=== PATIENT | female | born 2000 | race Hispanic/Latino ===

== ENCOUNTER 2022-08-14 13:54 | Emergency (ER) | payer SELFPAY ==
[2022-08-14 14:10] VITALS: BP 132/68; PULSE 85; RESP 20; TEMP 36.1; O2SAT 100
--- NOTE | 2022-08-14 14:43 | ED.SKABFB ---
HPI - Skin/Abscess/Foreign Bdy General Chief complaint: Skin/Abscess/Foreign Body Stated complaint: Allergic Reaction Time Seen by Provider: 08/14/22 14:43 Source: patient Mode of arrival: ambulatory Limitations: no limitations History of Present Illness HPI narrative: 21-year-old female presents with complaint of hives to bilateral arms, legs and trunk for 2 days. Took Benadryl with no relief. Complained of itching. Denies use of any new skin products, cleansers, laundry detergents or new foods. No history of hives. Patient also requesting test. Reports that period is 1 week late. No complaints of vaginal bleeding, abdominal pain. No urinary symptoms. Afebrile. All systems reviewed and negative except as noted above. Related Data Allergies Allergy/AdvReac Type Severity Reaction Status Date / Time No Known Allergies Allergy Mild Verified 08/14/22 14:09 Review of Systems Review of Systems: CONSTITUTIONAL: Denies fever, chills, or sweats. EYES: Denies visual changes, redness, or discharge. ENT: Denies rhinorrhea, congestion, sore throat, or otalgia. CARDIOVASCULAR: Denies chest pain, palpitations, or edema. RESPIRATORY: Denies cough or dyspnea. GASTROINTESTINAL: Denies abdominal pain, nausea, vomiting, or diarrhea. GENITOURINARY: Denies dysuria or hematuria. SKIN: Reports hives and itching. MUSCULOSKELETAL: Denies back pain, joint pain, or myalgia. NEUROLOGIC: Denies headache, numbness, or weakness. PSYCHIATRIC: Denies anxiety or depression. All other systems reviewed are negative, except as documented in HPI. PMFSH Comments At time of signature, agree with nursing past medical, surgical, social and family history. There is no relevant family history pertinent to the presenting complaint. Exam Narrative: GENERAL: This is a well-nourished, well-developed patient, in no apparent distress. HEAD: normocephalic, atraumatic. EYES: PERRL. Sclera clear/white. Vision is grossly intact. EARS: External ears normal NOSE: External nose normal NECK: Neck supple, non-tender without lymphadenopathy, masses or thyromegaly. CARDIOVASCULAR: Regular rate and rhythm without murmurs, gallops, or rubs. RESPIRATORY: Clear to auscultation. Breath sounds equal bilaterally. No wheezes, rales, or rhonchi. SKIN: warm, Dry, intact with no suspicious lesions, good texture and turgor. Erythematous sized bilateral forearms, abdomen, lower legs. NEURO: awake, alert, and oriented to person, place and time. There were no obvious focal neurologic abnormalities. EXTREMITIES: No joint tenderness, effusion, or edema noted. Course Course Level of Care: Express Care Visit Vital Signs Vital signs: Vital Signs Temperature 36.1 C L 08/14/22 14:10 Pulse Rate 85 08/14/22 14:10 Respiratory Rate 20 08/14/22 14:10 Blood Pressure 132/68 08/14/22 14:10 Pulse Oximetry 100 08/14/22 14:10 Oxygen Delivery Room Air 08/14/22 14:10 Temperature 36.1 C L 08/14/22 14:10 Pulse Rate 85 08/14/22 14:10 Respiratory Rate 20 08/14/22 14:10 Blood Pressure 132/68 08/14/22 14:10 Pulse Oximetry 100 08/14/22 14:10 Oxygen Delivery Room Air 08/14/22 14:10 Reviewed MDM - Skin/Abscess/Foreign Bdy MDM Narrative Medical decision making narrative: positive urine test. Referred to OBGYN for follow-up. Patient is aware of diagnosis, understands and agrees to treatment plan. Anticipatory guidance given. Patient agrees to follow-up as directed and is aware of reasons to seek care at the emergency department. Portions of this record may have been created with voice recognition software Lab Data Labs: UCG Bedside Result Positive Reference Range: Negative Discharge Plan Discharge Clinical Impression: Hives, Positive urine test Patient Disposition: Home, Self-Care Condition: Stable Instructions: Urticaria
== END 2022-08-14 15:11 | disposition home or self-care (01) ==
PROVIDERS: Emergency Provider Nurse Practitioner Family
DX: L50.9 Urticaria, unspecified (principal); Z32.01 Encounter for pregnancy test, result positive
CPT/HCPCS: 81025; 99213; G0463

== ENCOUNTER 2023-03-23 14:49 | Observation (INO) | payer OTHER, SELFPAY ==
--- NOTE | 2023-03-23 14:49 | OBADM ---
This patient, Norma Jansen, admitted to the OB room Labor/Delivery/Recovery 106 for observation. Patient/family oriented to hospital policies and general routines including ID bracelet, bed and alarms, visiting hours, pain management, procedures, bathroom and other care routines, personal items, smoking policy, room service/diet, and visiting hours. Patient/Family are encouraged to report perceived risks to care and to ask questions if they do not understand what they are told or what they should do.
--- NOTE | 2023-04-02 06:50 | PM.OBTRLD ---
OB - Triage/Final Diagnosis Visit Information Comments/Additional reasons for admission: I have assessed the risk for this patient, Norma Jansen, and determined that she would benefit from observation care. Final Diagnosis (1) contractions: Code(s): O47.00 - False labor before 37 completed weeks of gestation, unspecified trimester Status: Acute
== END 2023-03-23 17:40 | disposition home or self-care (01) ==
PROVIDERS: Admitting Provider Obstetrics & Gynecology; Visit Provider Obstetrics & Gynecology
DX: O47.1 False labor at or after 37 completed weeks of gestation (principal); Z3A.37 37 weeks gestation of pregnancy
CPT/HCPCS: G0378; G0379

== ENCOUNTER 2023-04-13 05:40 | Inpatient (IN) | payer OTHER, SELFPAY ==
[2023-04-13] VITALS (75 sets, daily range): BP systolic 74–145; BP diastolic 36–110; PULSE 73–166; RESP 16; TEMP 36.6–37.6; O2SAT 97–100; BMI 35.5
[2023-04-13 06:10] LABS: Basophils Percent Auto 0.4 % (0.2-1.2); Eosinophils Absolute Auto 0.1 K/mm3 (0-0.3); Eosinophils Percent Auto 1.4 % (0-4.4); Hematocrit 40.8 % (37.0-47.0); Hemoglobin 13.8 g/dL (12.0-15.0); Immature Granulocyte Absolute 0.02 K/mm3 (0.00-0.031); Immature Granulocyte Percent A 0.2 % (0-0.5); Lymphocytes Absolute Auto 2.33 K/mm3 (0.9-3.2); Lymphocytes Percent Auto 23.8 % (18.3-44.2); Mean Corpuscular HGB Conc 33.8 g/dl (32-36); Mean Corpuscular Hemoglobin 28.2 pg (26-34); Mean Corpuscular Volume 83.3 fl (80-100); Mean Platelet Volume 10.5 fl (7.4-10.4); Monocytes Absolute Auto 0.8 K/mm3 (0.1-0.6); Monocytes Percent Auto 7.8 % (2.6-8.5); Neutrophils Absolute Auto 6.5 K/mm3 (1.3-6.7); Neutrophils Percent Auto 66.4 % (45.5-73.1); Platelet Count Result 260 k/mm3 (150-375); Red Cell Distribution Width 12.8 % (11.5-14.5); White Blood Count 9.8 K/mm3 (4.5-10.0)
[2023-04-13] MEDS: LACTATED RINGERS 1,000 ML 999 ML IV CONT (06:30)
--- NOTE | 2023-04-13 06:49 | PM.IMHP ---
H&P: HPI History of Present Illness Date/Time: 04/13/23 06:49 Chief Complaint: labor Narrative: Norma is a 22yo G1 at 40.1 who presented in labor at 6cm. uncomplicated except for marginal cord insertion. GBS neg. Review of Systems Review of Systems: All systems reviewed & are unremarkable except as noted in HPI and below PMFSH Family History Family History (Updated 03/19/23 @ 14:28 by Sayra Carter RN) Other Unknown family medical history Social History Social History Substance use: never Spiritual care concerns: No Meds Home Medications and Allergies Home Medications Medication Instructions Recorded Confirmed Type famotidine 20 mg tablet 20 mg PO BID 5 days #10 tabs 08/14/22 03/19/23 Rx prenat.vits,salvador,[id number] 1 tablet PO DAILY #60 tabs 08/14/22 03/19/23 Rx Allergies Allergy/AdvReac Type Severity Reaction Status Date / Time No Known Allergies Allergy Mild Verified 08/14/22 14:09 Exam Const: General: no acute distress Resp: Effort & Inspection: normal respiratory effort Auscultation: clear to auscultation bilaterally Cardio: Rate: regular rate Rhythm: regular rhythm GI: GI Palp: Yes Soft to palpation Extrem: General: normal to inspection H&P: Results Labs Labs: Short CBC 04/13/23 Range/Units 06:03 WBC 9.8 (4.5-10.0) K/mm3 Hgb 13.8 (12.0-15.0) g/dL Hct 40.8 (37.0-47.0) % Plt Count 260 (150-375) k/mm3 Assessment and Plan Assessment and plan (1) Marginal insertion of umbilical cord: Status: Acute (2) Active labor at term: Status: Acute Plan FHT category 1 AROM clear /-1 GBS neg
[2023-04-13] MEDS: LACTATED RINGERS 1,000 ML 125 ML IV CONT (07:31)
[2023-04-13 08:11] LABS: Rapid Plasma Reagin Non-Reactive (NonReactive)
--- NOTE | 2023-04-13 10:15 | PC.NURSE ---
0910 - Introductions were made and mother shared how she would like to feed her baby with . Encouraged mother to place [id number] until the first feeding if infant is stable and to wait on the weight to help stabilize, reduce stress, and improve latching by allowing time to explore parent's chest using instincts. Education was shared on how to protect her milk supply with latching infant and/or using hand expression to remove milk if doesn't latch in the first hour, then finger feed colostrum to the infant to preserve breast focus. Resources provided with educational trifold for bonding and feeding infant. Parents voiced understanding of information and to call if there is a request for assistance.
[2023-04-13] MEDS: OXYTOCIN 30 UNITS/NS 500 ML 30 UNITS/500 ML BAG 999 UNITS IV CONT (10:41)
[2023-04-13] MEDS: OXYTOCIN 30 UNITS/NS 500 ML 30 UNITS/500 ML BAG 125 UNITS IV CONT (11:15)
--- NOTE | 2023-04-13 11:25 | PM.OBPRVD ---
OB - Delivery Note Procedure Delivery date: 04/13/23 Procedure: Delivery augmentation: Rupture of Membranes Delivery monitor: External FHT and External Uterine Route of delivery: Laceration Description: Perineal - 2nd Degree and Vaginal (extensive vaginal vault lacerations with brisk bleeding leading to hemorrhage) Delivery repair: vicryl Specimen: No Quantitative Blood Loss (ml): 900 Anesthesia type: Epidural Disposition: Floor Complications: Complicated repair of extensive vaginal vault lacerations. Hemorrhage of 900cc during repair, hemostatic after. Narrative: With adequate expulsive efforts by the mother, the baby's head was delivered OA. The baby's anterior shoulder was delivered under the pubic symphysis without difficulty. The posterior shoulder and the rest of the baby delivered without difficulty. Thick meconium noted at delivery. The was placed on the mothers chest and suctioned and stimulated. The cord was clamped and cut after 30 seconds. Mother and baby both stable. Baby Date of : 04/13/23 Time of : 10:35 Weeks of gestation at delivery: 40 gender: Female Weight (pounds): 8 Weight (ounces): 0 presentation: vertex Placenta delivery description: Manual Removal Cord Vessel Description: 3 Vessels and Delayed Cord Clamping score one minute: 8 score five minutes: 9
[2023-04-13] MEDS: ONDANSETRON INJ 4 MG/2 ML VIAL IV PUSH (11:30)
[2023-04-13] MEDS: IBUPROFEN 600 MG TABLET PO ×2 (14:05→20:18)
[2023-04-13] MEDS: WITCH HAZEL 40 PADS 1 PAD TOPICAL (14:06)
[2023-04-13] MEDS: BENZOCAINE 20% AER SPR (*SP) 56 GM CAN 1 SPRAY TOPICAL (14:06)
[2023-04-13] MEDS: ACETAMINOPHEN 325 MG TABLET 650 MG PO (16:54)
[2023-04-13] MEDS: POLYSACCHARIDE IRON COMPLEX 150 MG CAPSULE PO (16:54)
[2023-04-14] MEDS: IBUPROFEN 600 MG TABLET PO ×3 (02:15→16:29)
[2023-04-14 04:55] VITALS: BP 120/78; PULSE 86; RESP 18; TEMP 36.6
[2023-04-14 05:52] LABS: Hematocrit 26.9 % (37.0-47.0); Hemoglobin 8.9 g/dL (12.0-15.0)
--- NOTE | 2023-04-14 07:29 | P.PNOB_ITS ---
OB - PN: Subj Subjective Date/time seen: 04/14/23 07:29 vaginal delivery, pp day 1 pt requests d/c VSS, no complaints OB - PN: Obj Data Labs 04/14/23 04:57 Labs: Laboratory Results - last 24 hr 04/13/23 04/14/23 06:03 04:57 Hgb 8.9 L D Hct 26.9 L RPR Non-reactive OB - PN A/P Plan day: 1 Plan: routine care and discharge home Time Spent With Patient Time: Total time spent is greater than 50% in coordination of care (as documented) at patient's floor/unit and/or counseling patient: Review of Systems Review of Systems: All systems reviewed & are unremarkable except as noted in HPI and below Exam Const: General: cooperative, healthy appearing and comfortable Chest: Chest palpation & inspection: normal inspection of the chest Resp: Effort & Inspection: normal respiratory effort GI: Other: soft Skin: General skin exam: normal color and no rashes or lesions noted Extrem: Right lower extremity: normal to inspection Left lower extremity: n ormal to inspection Psych: Appearance: grossly normal
--- NOTE | 2023-04-14 07:32 | P.DS_ITS ---
DS: Admitting Diagnosis Discharge Date 04/14/2023 Admitting Diagnosis labor DS: Discharge Diagnosis Discharge Diagnosis (1) Vaginal delivery: Code(s): O80 - Encounter for full-term uncomplicated delivery Status: Acute OB - DS: Summary OB Procedures : None OB Procedures Intrapartum: Spontaneous Vag Delivery OB Procedures: : None Time Spent with Patient Time attestation: Total time spent providing and/or coordinating discharge services: DS: Data Data Completed and Pending Labs on day of discharge: Labs from last 24 hours 04/14/23 04/13/23 04:57 06:03 Hgb 8.9 L D Hct 26.9 L RPR Non-reactive Discharge Plan Discharge Attending physician on discharge: Lara Emmanuel Discharging Clinician: Shawnee Ricks Patient Disposition: Home, Self-Care Activity: pelvic rest Diet: regular Patient Instructions: Antibiotic Form Stand Alone Forms: General Discharge Information Follow-up/Referrals: Connie Piedra MD [Physician] - 4 Weeks Discharge Medications: New ibuprofen 600 mg Tablet 600 mg PO Q6H PRN (Reason: Cramping) Qty: 30 0RF polysaccharide iron complex 150 mg iron Capsule 150 mg PO BIDWM Qty: 60 0RF Continued prenat.vits,salvador,[id number] Tablet 1 tablet PO DAILY Qty: 60 0RF Date of admission: 04/13/23 05:40 Primary Care Provider: PHYSICIAN,EARLY CHILDHOOD ASSOCIATE TEACHER Admitting Provider: Connie Piedra Attending physician on admission: Connie Piedra Condition: Stable
[2023-04-14 07:50] VITALS: BP 93/49; PULSE 79; RESP 18; TEMP 36.4; O2SAT 100
[2023-04-14] MEDS: POLYSACCHARIDE IRON COMPLEX 150 MG CAPSULE PO ×2 (08:05→16:28)
[2023-04-14] MEDS: MULTIVIT/MIN/PREN/FOL AC/IRON TABLET 1 TAB PO (08:05)
[2023-04-14] MEDS: DOCUSATE SODIUM 100 MG CAPSULE PO ×2 (08:06→16:29)
--- NOTE | 2023-04-14 10:50 | WPDANLDPN2 ---
Anes-Prog Note L&D Date/Time: 04/14/23 10:50 Comfortable throughout: labor and delivery Neuraxial method: epidural Epidural/Spinal procedure site: clean & non-tender Neuro status: Neuro function grossly intact. Cardiovascular status: normal Respiratory status: normal Airway patency: baseline Mental status: baseline Post-Op hydration status: normal Vital Signs: Last Vital Signs Temp 36.4 C L 04/14/23 07:50 Pulse 79 04/14/23 07:50 Resp 18 04/14/23 07:50 BP 93/49 L 04/14/23 07:50 Pulse Ox 100 04/14/23 07:50 O2 Del Method Room Air 04/13/23 19:30 Pain score (VAS): 10 I/O: Intake & Output 04/13/23 04/14/23 04/14/23 23:59 07:59 15:59 Intake Total 240 Balance 240 Post-procedural complaints: none Patient feedback: Patient satisfied with anesthetic care.
--- NOTE | 2023-04-14 14:57 | PC.NURSE ---
[id number] Re-introductions were made and name written on the communication board. Encouraged mother reminding her of the benefits of [id number]-[id number], stimulating infant for wakeful feeding every 2-3 hours. Mother states she has been latching well with no pain and will call for assistance with the next . [id number] Mother requested assistance with latching . Mother works well with her infant with encouragement and education. Reviewed positioning, supporting the breast to facilitate a deep latch, asymmetrical latch (off-center), leading with the chin with a big, open, wide gape and body close to mother. Infant latched optimally to the right breast in football position. Education given to mother of how to visualize suck/swallow ratios and listen for drinking at the breast. Infant was able to maintain latch without discomfort to mother. Nipple care reviewed with optimal latch and good positioning. Resources used to facilitate learning were used with the mom and baby guide. Mother voiced understanding of skin to skin, stimulating with massage touch, responsive feedings, hand expressed colostrum, talking to to encourage if it has been 2 -2.5 hours since the start of the last , to call if infant does not latch, or if there is discomfort with . Mother voiced understanding of information, demonstrated learning and will call if there is a request for assistance. Reported to the Primary RN.
[2023-04-14] MEDS: TETANUS,DIPHTHERIA,AC PERTUSSIS ADULT (0.5 ML) BOOSTRIX IM (16:29)
[2023-04-14 20:00] VITALS: BP 113/70; PULSE 90; RESP 16; TEMP 36.9; O2SAT 99
[2023-04-15] MEDS: IBUPROFEN 600 MG TABLET PO ×3 (06:34→22:00)
--- NOTE | 2023-04-15 07:33 | PM.OBPNVD ---
OB - PN: Subj Subjective Date/time seen: 04/15/23 07:33 Patient comments: no complaints baby status: doing well Narrative: s/p venofer, no anemia sx. OB - PN: Obj Data Labs 04/14/23 04:57 OB - PN A/P Plan day: 2 Plan: routine care and discharge home Time Spent With Patient Time: Total time spent is greater than 50% in coordination of care (as documented) at patient's floor/unit and/or counseling patient: Time with patient: less than 15 minutes Exam Narrative: NAD abdomen soft, nontender, fundus firm below the umbilicus Extremities nontender, 1+ edema
[2023-04-15 07:40] VITALS: BP 110/67; PULSE 83; RESP 16; TEMP 36.3; O2SAT 100
[2023-04-15] MEDS: DOCUSATE SODIUM 100 MG CAPSULE PO ×2 (08:59→16:52)
[2023-04-15] MEDS: POLYSACCHARIDE IRON COMPLEX 150 MG CAPSULE PO ×2 (08:59→16:52)
[2023-04-15] MEDS: LANOLIN (LANSINOH) 7.5 GM CREAM 1 APPLIC TOPICAL (08:59)
[2023-04-15] MEDS: MULTIVIT/MIN/PREN/FOL AC/IRON TABLET 1 TAB PO (08:59)
--- NOTE | 2023-04-15 10:47 | PC.NURSE ---
[id number] Purposefully rounded to assess needs. Mother states has been latching well but not swallowing a lot. Mother led the conversation with her experience and plan to feed her so far and her ability to independently latch infant optimally without discomfort. Mother will be supplementing with formula after every until her milk comes to full volume as infant has lost 9.47% of her weight. Reminded parents to use good handwashing technique to prevent infection. Mother is feeding appropriately for growth of infant and understands stimulating to eat if needed. Infant has had adequate feedings in the last 24 hours meets the outcomes output and jaundice at this time. Mother states she is confident to continue feed her infant at home, when to call for assistance and denies any additional assistance or education at this time. Reinforced understanding of milk production as it may be delayed related to large blood loss (QBL 950), transition of milk, signs of adequate intake, transition of stool, prevention/relief of engorgement, responsive watching for feeding cues, the different methods of stimulating to breastfeed 2-3 hours after the start of the last feeding, community resources (EBTF handout) as patient states she has none that she is aware of, and when to call a provider using the resource of the mom and baby guide. Mother voiced understanding of the education shared. Reported to the primary RN.
[2023-04-18 10:19] VITALS: BP 113/80; PULSE 77; RESP 18; TEMP 36.7; O2SAT 100
== END 2023-04-15 22:06 | disposition home or self-care (01) | DRG 560 ==
LOC: ANHLDR 05:52 → ANHOB2 14:01
PROVIDERS: Admitting Provider Obstetrics & Gynecology; Visit Provider Obstetrics & Gynecology
DX: O43.123 Velamentous insertion of umbilical cord, third trimester (principal); O70.1 Second degree perineal laceration during delivery; O69.89X0 Labor and delivery complicated by other cord complications, not applicable or unspecified; O77.0 Labor and delivery complicated by meconium in amniotic fluid; Z3A.40 40 weeks gestation of pregnancy; Z37.0 Single live birth
CPT/HCPCS: 36415; 59025; 84112; 85014; 85018; 85025; 86592; 86850; 86900; 86901; 90715; A9270; J1756; J2405; J2590; J2795; J7120

== ENCOUNTER 2025-06-24 13:22 | Outpatient (CLI) | payer OTHER, SELFPAY ==
--- NOTE | 2025-06-24 14:15 | NEURO_ITS ---
Impression: # Complains of numbness of hands. Non-diabetic. ? # Right moderate Carpal Tunnel Syndrome. ? # Left evolving Carpal Tunnel Syndrome. ? # No ulnar neuropathy. ? # Normal Needle/EMG exam. Nerve Conduction Studies ?Stim Site NR Peak (ms) P-T Amp (?V) Site1 Site2 Delta-P (ms) Dist (cm) Norman (m/s) Left Median Anti Sensory (2-3nd Digit) Wrist ? 3.5 44.7 Wrist 2-3nd Digit 3.5 14.0 40 Wrist ? 3.6 31.6 Wrist 2-3nd Digit 3.5 14.0 40 Right Median Anti Sensory (2-3nd Digit) Wrist ? 6.0 36.1 Wrist 2-3nd Digit 6.0 14.0 23 Wrist ? 5.0 12.6 Wrist 2-3nd Digit 6.0 14.0 23 Left Radial Anti Sensory (Base 1st Digit) Wrist ? 1.8 43.0 Wrist Base 1st Digit 1.8 0.0 Right Radial Anti Sensory (Base 1st Digit) Wrist ? 1.7 38.1 Wrist Base 1st Digit 1.7 0.0 Left Ulnar Anti Sensory (5th Digit) Wrist ? 2.1 65.4 Wrist 5th Digit 2.1 14.0 67 Right Ulnar Anti Sensory (5th Digit) Wrist ? 2.1 60.0 Wrist 5th Digit 2.1 14.0 67 ?Stim Site NR Onset (ms) O-P Amp (mV) Site1 Site2 Delta-0 (ms) Dist (cm) Norman (m/s) Left Median Motor (Abd Poll Brev) Wrist ? 3.3 4.9 Elbow Wrist 4.7 27.0 57 Elbow ? 8.0 4.7 Right Median Motor (Abd Poll Brev) Wrist ? 4.8 4.6 Elbow Wrist 4.7 27.0 57 Elbow ? 9.5 6.9 Left Ulnar Motor (Abd Dig Minimi) Wrist ? 2.5 3.1 A Elbow Wrist 4.7 27.0 57 A Elbow ? 7.2 6.2 B Elbow Wrist 3.3 19.0 58 B Elbow ? 5.8 3.3 Right Ulnar Motor (Abd Dig Minimi) Wrist ? 2.6 4.0 A Elbow Wrist 5.2 30.0 58 A Elbow ? 7.8 5.6 B Elbow Wrist 3.6 20.0 56 B Elbow ? 6.2 3.5 F Wave Studies ?NR F-Lat (ms) L-R F-Lat (ms) Left Median (Mrkrs) (Abd Poll Brev) ? 25.56 4.39 Right Median (Mrkrs) (Abd Poll Brev) ? 29.94 4.39 Left Ulnar (Mrkrs) (Abd Dig Min) ? 26.70 0.53 Right Ulnar (Mrkrs) (Abd Dig Min) ? 26.17 0.53 Electromyography ?Side Muscle Nerve Root Ins Act Fibs Amp Dur Recrt Comment Right 1stDorInt Ulnar C8-T1 Nml Nml Nml Nml Nml Right Ext Indicis Radial (Post Int) C7-8 Nml Nml Nml Nml Nml Right Ext Digitorum Radial (Post Int) C7-8 Nml Nml Nml Nml Nml Right BrachioRad Radial C5-6 Nml Nml Nml Nml Nml Right PronatorTeres Median C6-7 Nml Nml Nml Nml Nml Right Abd Poll Brev Median C8-T1 Nml Nml Nml Nml Nml Right ABD Dig Min Ulnar C8-T1 Nml Nml Nml Nml Nml Right FlexPolLong Median (Ant Int) C7-8 Nml Nml Nml Nml Nml Right Abd Poll Long Radial (Post Int) C7-8 Nml Nml Nml Nml Nml Left 1stDorInt Ulnar C8-T1 Nml Nml Nml Nml Nml Left Ext Indicis Radial (Post Int) C7-8 Nml Nml Nml Nml Nml Left Ext Digitorum Radial (Post Int) C7-8 Nml Nml Nml Nml Nml Left BrachioRad Radial C5-6 Nml Nml Nml Nml Nml Left PronatorTeres Median C6-7 Nml Nml Nml Nml Nml Left Abd Poll Brev Median C8-T1 Nml Nml Nml Nml Nml Left ABD Dig Min Ulnar C8-T1 Nml Nml Nml Nml Nml Left FlexPolLong Median (Ant Int) C7-8 Nml Nml Nml Nml Nml Left Abd Poll Long Radial (Post Int) C7-8 Nml Nml Nml Nml Nml
== END 2025-06-24 13:23 | disposition home or self-care (01) ==
LOC: ANHNEURO 13:23
PROVIDERS: Visit Provider Physician Assistant
DX: R20.2 Paresthesia of skin (principal); G56.03 Carpal tunnel syndrome, bilateral upper limbs
CPT/HCPCS: 95886; 95911